=== PATIENT | male | born 1995 | race Caucasian/White ===

== ENCOUNTER 2020-01-27 10:00 | Emergency (ER) | payer MEDICAID ==
[~2020-01-27] VITALS: Ht 175.3 cm; Wt 81.6 kg
[2020-01-27 10:10] VITALS: BP_SYST 141
[2020-01-27] MEDS ORDERED: NACL 0.9% 1,000 ML IV ONE (10:10)
--- NOTE | 2020-01-27 10:10 | NUR ---
Placed in room [address] on telemetry monitor, blood pressure machine and pulse oximeter. Patient refusing gown. Side rails up, seizure pads in place. Assumed care from [facility] ambulance.
[2020-01-27] MEDS ORDERED: HALOPERIDOL LACTATE 5 MG/ML VIAL IVP ONE (10:15)
[2020-01-27] MEDS ORDERED: LORazepam 2 MG/ML VIAL IVP ONE (10:15)
--- NOTE | 2020-01-27 10:25 | NUR ---
Patient arrived via [facility] ambulance agitated and irate, shouting, yelling in 4 point restraints by EMS. Patient had a seizure at home. Patient postictal and sleeping intermittently. Blood present in mouth, dried around lip area. Patient incontinent of urine. Patient actively refusing all care.
--- NOTE | 2020-01-27 10:27 | NUR ---
ER at bedside examining patient.
[2020-01-27] MEDS ORDERED: DIPHENHYDRAMINE INJ 50 MG/ML VIAL IVP ONE (10:30)
--- NOTE | 2020-01-27 10:45 | NUR ---
# 18 gauge angiocath placed to right forearm. Use of asceptic technique. Opsite placed over site. Blood return noted. Blood for lab drawn from site. Flushed with 10 cc of normal saline. No evidence of infiltration noted. Patient tolerated well.
[2020-01-27 10:53] LABS: BASOPHILS # (AUTO) 0.1 K/uL (0.0-0.2); BASOPHILS % (AUTO) 0.7 % (0.0-2.0); EOSINOPHILS # (AUTO) 0.2 K/uL (0.0-0.4); EOSINOPHILS % (AUTO) 2.6 % (0.0-4.0); HEMATOCRIT 45.9 % (36-54); LYMPHOCYTES # (AUTO) 2.9 K/uL (1.0-5.5); LYMPHOCYTES % (AUTO) 31.6 % (20.5-51.5); MEAN CORPUSCULAR HEMOGLOBIN 31 pg (27-31); MEAN CORPUSCULAR HGB CONC 33 % (32-36); MEAN CORPUSCULAR VOLUME 94 fL (79.0-98.0); MONOCYTES # (AUTO) 0.5 K/uL (0.0-1.0); MONOCYTES % (AUTO) 5.1 % (1.7-9.3); NEUTROPHILS # (AUTO) 5.5 K/uL (1.8-7.7); PLATELET COUNT (AUTO) 190 K/uL (130-430); RED CELL DISTRIBUTION WIDTH 12.9 % (9.0-15.0); WHITE BLOOD COUNT (AUTO) 9.2 K/uL (4.8-10.8)
--- NOTE | 2020-01-27 10:55 | NUR ---
Patient refusing to have catheter and refusing to give urine specimen at this time. Patient refusing application of mask for safety, stating he "has asthma and can't breath." When prompted with questions, patient states "I dont take anything for asthma and have not had an asthma attack ever."
[2020-01-27 11:23] LABS: PROTHROMBIN TIME 10.3 SECS (9.5-12.5)
[2020-01-27 11:27] LABS: ANION GAP 21 (5-15); CALCIUM 8.6 mg/dL (8.4-11.0); CHLORIDE 104 mmol/L (98-107); CREATININE 1.49 mg/dL (0.55-1.30); GLUCOSE 170 mg/dL (70-99); POTASSIUM 3.6 mmol/L (3.5-5.1); SODIUM SERUM 138 mmol/L (136-145); UREA NITROGEN, BLOOD 20 mg/dL (8-21)
[2020-01-27 11:28] LABS: GFR AFRICAN AMERICAN 74 mL/min (>90)
[2020-01-27 11:33] LABS: ALANINE AMINOTRANSFERASE 23 U/L (12-78); ALBUMIN 3.8 g/dL (3.4-4.8); AMYLASE 87 U/L (0-100); ASPARTATE AMINOTRANSFERASE 23 U/L (10-37); LIPASE 74 U/L (73-393); TOTAL BILIRUBIN 0.3 mg/dL (0.0-1.0)
[2020-01-27 11:34] LABS: ALCOHOL, BLOOD < 3 mg/dL (<10)
[2020-01-27 11:56] LABS: BILIRUBIN,URINE NEGATIVE (NEGATIVE); BLOOD, URINE 1+ (NEGATIVE); CLARITY/URINE CLEAR (CLEAR); COLOR,URINE YELLOW (YELLOW); GLUCOSE,URINE NEGATIVE (NEGATIVE); KETONES,URINE NEGATIVE (NEGATIVE); LEUKOCYTE ESTERASE ,URINE NEGATIVE (NEGATIVE); NITRITE, URINE NEGATIVE (NEGATIVE); PH,URINE 5.5 (5.0-8.0); PROTEIN URINE NEGATIVE (NEGATIVE); UROBILINOGEN,URINE 0.2 (0.2-1.0)
--- NOTE | 2020-01-27 12:05 | NUR ---
Critical lab result from [facility], Lactic acid 13.3. Notified RONALDO Mohamud and Dr. Nieves
[2020-01-27] MEDS ORDERED: NACL 0.9% 2,000 ML IV ONE (12:15)
[2020-01-27 12:18] LABS: BACTERIA,URINE None Seen /HPF (None Seen); WBC,URINE NONE SEEN /HPF (0-3)
[2020-01-27 12:29] LABS: BARBITURATE, URINE NEGATIVE (NEG <=200); BENZODIAZEPINE, URINE NEGATIVE (NEG <=150); CANNABINOID, URINE POSITIVE (NEG <=50); COCAINE, URINE NEGATIVE (NEG <=150); METHAMPHETAMINES SCREEN,URINE NEGATIVE (NEG <=500); OPIATE, URINE NEGATIVE (NEG <=100); PHENCYCLIDINE SCREEN,URINE NEGATIVE (NEG <=25); UR TRICYCLIC ANTIDEPRESSANTS NEGATIVE (NEG <=300); URINE AMPHETAMINE NEGATIVE (NEG <=500); URINE METHADONE NEGATIVE (NEG <=200); URINE OXYCODONE SCREEN NEGATIVE (NEG <=100); URINE PROPOXYPHENE SCREEN NEGATIVE (NEG <=300)
--- NOTE | 2020-01-27 13:10 | NUR ---
PATIENT IS MORE COOPERATIVE AT THIS TIME, PATIENT IS CALM AND CONVERSING. PATIENT HAS IVF RUNNING PER MD ORDERS, PATIENT ON [employer]. PATIENT HAS NOT HAD A SEIZURE SINCE ARRIVAL.
[2020-01-27 14:45] VITALS: BP_SYST 138
--- NOTE | 2020-01-27 14:45 | NUR ---
Patient given written and verbal discharge instructions and verbalizes understanding. ER MD discussed with patient the results and treatment provided. Patient in stable condition. ID arm band removed. IV catheter removed intact and dressing applied, no active bleeding. Rx not given. Patient educated on pain management and to follow up with PMD. Pain Scale 0/10. Opportunity for questions provided and answered. Medication side effect fact sheet provided. Patient given scrub pants and hospital orange gown to go home in.
== END 2020-01-27 14:45 | disposition home or self-care (01) ==
LOC: SED 10:00
DX: F23 Brief psychotic disorder (principal); F12.129 Cannabis abuse with intoxication, unspecified; G40.909 Epilepsy, unspecified, not intractable, without status epilepticus; J45.909 Unspecified asthma, uncomplicated; E87.2 Acidosis; F15.90 Other stimulant use, unspecified, uncomplicated; F17.200 Nicotine dependence, unspecified, uncomplicated
CPT/HCPCS: 36415; 71045; 80053; 80307; 81000; 82150; 83605; 83690; 84484; 85025; 85610; 85730; 87040; 93005; 99285; G0481; G0482; J7030; J1200; J1630; J2060